=== PATIENT | female | born 1980 | race Two or more races ===

== ENCOUNTER 2023-03-03 23:21 | Emergency (ER) | payer OTHER ==
[2023-03-03 23:34] VITALS: BP 100/97; PULSE 78; RESP 20; TEMP 98.2; BMI 32.3
== END 2023-03-04 01:44 | disposition home or self-care (01) ==
LOC: JER 23:21
DX: R05.9 Cough, unspecified (principal); R09.81 Nasal congestion; M79.662 Pain in left lower leg; Z76.0 Encounter for issue of repeat prescription
CPT/HCPCS: 71046-TC-FY; 99283-25

== ENCOUNTER 2023-03-04 12:47 | Emergency (ER) | payer OTHER ==
[2023-03-04 12:58] VITALS: BP 115/77; PULSE 58; RESP 18; TEMP 98.2; BMI 32.3
== END 2023-03-04 13:38 | disposition home or self-care (01) ==
LOC: JERFT 12:47 → JER 12:47 → JERFT 13:38
DX: Z76.0 Encounter for issue of repeat prescription (principal)
CPT/HCPCS: 99281-25